=== PATIENT | male | born 1975 | race Hispanic/Latino ===

== ENCOUNTER 2022-01-05 06:20 | Day surgery (SDC) | payer OTHER ==
[~2022-01-05] VITALS: Ht 170.2 cm; Wt 77.1 kg
[~2022-01-05 06:20] MED LIST: 0.9%NACL 1000ML 1,000 ML IV ONE
[2022-01-05 06:40] VITALS: BP 110/77
[2022-01-05] MEDS ORDERED: PROPOFOL 10 MG/ML 20ML VIAL IV ONE (07:05)
[2022-01-05 08:15] VITALS: BP 99/64
[2022-01-05 08:20] VITALS: BP 101/65
[2022-01-05 08:25] VITALS: BP 103/67
[2022-01-05 08:30] VITALS: BP 99/66
[2022-01-05 08:45] VITALS: BP 104/68
== END 2022-01-05 08:45 | disposition home or self-care (01) ==
LOC: DAH 06:20 → ENDO 06:20
PROVIDERS: ATTEND Internal Medicine Gastroenterology
DX: Z12.11 Encounter for screening for malignant neoplasm of colon (principal); Z20.822 Contact with and (suspected) exposure to COVID-19; K62.1 Rectal polyp; Z79.01 Long term (current) use of anticoagulants; Z72.89 Other problems related to lifestyle
CPT/HCPCS: 45380; 87635; A4215 ×2; A4221; A4222; A4223; A4606; A4620; A4657; A4663; C9803; J2704; J7030

== ENCOUNTER → 2024-12-28 | Outpatient (CLI) | payer OTHER ==
[2024-12-28 12:21] LABS: ALBUMIN 3.8 g/dL (3.5-5.0); BILIRUBIN,TOTAL 0.4 mg/dL (0.2-1.0); CREATININE 0.9 mg/dL (0.5-1.3); TOTAL PROTEIN, SERUM 6.9 g/dL (6.0-8.3)
[2024-12-28 12:25] LABS: HEMOGLOBIN A1C 5.8 % (4.0-6.0)
== END | disposition home or self-care (01) ==
LOC: LAB 09:25
PROVIDERS: ATTEND Student in an Organized Health Care Education/Training Program
DX: R55 Syncope and collapse (principal)
CPT/HCPCS: 36415; 80053; 80061; 83036

== ENCOUNTER → 2025-01-03 | Outpatient (CLI) | payer OTHER ==
[~2025-01-03] MED LIST changes: -0.9%NACL 1000ML 1,000 ML IV ONE; +AMOX500C2 PO; +FLUT16H NS; +IOHEXOL 350 MG/ML 100ML INFUS..BTL IV ONE; +LORA10TA7 PO; +metoPROLOL tartRATE 1 MG/ML 5ML VIAL IV ONE
--- NOTE | 2025-01-03 13:12 | HMCIMG ---
CT CARDIAC ANGIO W/CONT. CCTA REASON: SYNCOPE AND COLLASPE COMPARISON: None TECHNIQUE: Images are obtained through the heart in the axial plane before and during bolus IV contrast infusion, 100 cc Omnipaque 350. 2-D and 3-D multiplanar reconstruction images were then performed. The injection had to be repeated once due to motion artifact on the first sequence, total contrast volume was 200 cc. FINDINGS: This dictation is for the noncardiac findings only. Cardiac and coronary artery findings are reported separately. Visualized portions of the lungs are clear. There is normal-appearing pulmonary interstitium. There is no hilar or mediastinal lymphadenopathy. Chest wall structures appear unremarkable. IMPRESSION: 1. Unremarkable noncardiac portions of CT cardiac angiography.
--- NOTE | 2025-01-07 14:09 | CARDIOLOGY ---
RAD REPORT: CORNARY CT ANGIO RADIOLOGY REPORT: CORONARY CT ANGIOGRAPHY DATE: Jan 07, 2025 QUALITY: Excellent CLINICAL HISTORY AND INDICATION: [ syncope] TECHNIQUE: After obtaining a preliminary form tamper image, contrast imaging performed on an [employer] [id number] scanner. A dedicated, limited window, coronary imaging protocol was used, with single breath-hold, retrospective ECG gating, and automated arrhythmia rejection. 100 cc of low osmolar contrast agent: Omnipaque 350 was delivered via a 18-gauge IV catheter in the right antecubital fossa, using a power injector and followed by 60 cc of normal saline bolus as a chaser. Collimated images were reformatted at 0.5 mm intervals, and sent to an offline independent workstation for interpretation, using 3D anatomic reconstructions: Curved multiplanar reconstructions, maximum intensity projections, and multiplanar imaging. 10 mg IV metoprolol was administered prior to scanning. 0.8 mg SL nitroglycerin was given. CORONARY ARTERY DESCRIPTIONS: The coronary arteries arise in normal position. Left main coronary artery: Normal caliber vessel that bifurcates into the LAD and LCx. No stenosis. Left anterior descending coronary artery: Normal caliber vessel and gives rise to diagonal and septal branches. No stenosis. Left circumflex coronary artery: Normal caliber, nondominant and gives rise to two large OM branches. No stenosis. Right coronary artery: Large, dominant vessel giving rise to the PL and PDA branches. No stenosis. CAD-RADs: 0, absence of CAD. Thoracic Aorta: Normal diameter. Sharee Torres MD Cardiovascular Disease [facility] SHAREE TORRES MD Jan 07, 2025 14:08
== END | disposition home or self-care (01) ==
LOC: RAH 10:16
PROVIDERS: ATTEND Student in an Organized Health Care Education/Training Program
DX: R55 Syncope and collapse (principal)
CPT/HCPCS: 75574; J3490; Q9967 ×2

== ENCOUNTER 2025-01-05 08:16 | Emergency (ER) | payer OTHER ==
[~2025-01-05] VITALS: Ht 170.2 cm; Wt 77.1 kg
[2025-01-05 08:21] VITALS: TEMP 98.9
[2025-01-05] MEDS: 0.9%NACL 1000ML 1,000 ML IV ONE (08:46)
[2025-01-05] MEDS: mecliZINE HCL 25 MG TABLET PO ONE (08:46)
[2025-01-05 08:48] LABS: BASOPHILS # (AUTO) 0.04 K/uL (0.00-0.20); BASOPHILS % (AUTO) 0.7 % (0.0-5.0); EOSINOPHILS # (AUTO) 0.28 K/uL (0.00-0.70); EOSINOPHILS % (AUTO) 5.2 % (0.0-8.0); IMMATURE GRANULOCYTE ABSOLUTE 0.02 K/uL (0-1); LYMPHOCYTES # (AUTO) 1.8 K/uL (1.0-4.8); LYMPHOCYTES % (AUTO) 33.6 % (21.0-51.0); MEAN CORPUSCULAR HEMOGLOBIN 30.4 pg (27.0-33.0); MEAN CORPUSCULAR HGB CONC 33.2 g/dL (32.0-36.0); MEAN CORPUSCULAR VOLUME 91.6 fL (79-99); MONOCYTES # (AUTO) 0.6 K/uL (0.1-1.0); MONOCYTES % (AUTO) 10.2 % (3.0-13.0); NEUTROPHILS # (AUTO) 2.7 K/uL (1.8-7.7); NEUTROPHILS % (AUTO) 49.9 % (40.0-77.0); PLATELET COUNT (AUTO) 231 K/uL (130-400); RED BLOOD CELL COUNT(AUTO) 5.46 MIL/uL (4.50-6.20); RED CELL DISTRIBUTION WIDTH 12.9 % (11.0-15.5); WHITE BLOOD COUNT (AUTO) 5.4 K/uL (4.8-10.8)
[2025-01-05 08:56] LABS: INR <= 0.93 (0.85-1.15); PROTHROMBIN TIME 10.2 SEC (9.6-11.6)
[2025-01-05 08:58] LABS: PARTIAL THROMBOPLASTIN TIME 27.5 SEC (26.3-35.5)
--- NOTE | 2025-01-05 09:00 | EKG ---
[facility] Test Date: 2025-01-05 Test Time: 08:29:24 Pat Name: ALONDRA POLK Department: ED Room: Gender: M [employer]: [id number] : 1975 Requested By: MARIANO COLÓN Order Number: [id number] Reading MD: Julio Torres Measurements Intervals [place] Rate: 74 P: 42 [place]: 165 QRS: 20 QRSD: 86 T: 24 QT: 390 QTc: 434 Interpretive Statements Sinus rhythm Anteroseptal infarct, age indeterminate Compared to ECG 09/25/2015 00:38:42 Myocardial infarct finding now present Electronically Signed On 01-08-2025 15:59:45 [employer] by Julio Torres Please click the below link to view image of tracing.
[2025-01-05 09:01] LABS: POTASSIUM 3.9 mmol/L (3.5-5.1)
--- NOTE | 2025-01-05 09:09 | ERN ---
General Chief Complaint: Dizzy/Light Headed Stated Complaint: DIZZINESS Time Seen by MD: 08:20 Source: patient History of Present Illness Initial Comments Patient is a 49-year-old male coming in to be evaluated for vertigo. Patient states that this has been ongoing for a couple of days. He also states that he has felt this vertigo more with movement and bending over. No fever or chills no nausea no vomiting. Allergies: Coded Allergies: No Known Drug Allergies (Unverified Allergy, Unknown, 01/02/22) Home Meds No Active Prescriptions or Reported Meds Past Medical History Past Medical History: No Pertinent History Past Surgical History: None ROS Dictation CONSTITUTIONAL: No chills, no fever, no weakness, no diaphoresis, no malaise. HEAD/FACE: No signs of trauma. EENT: No eye pain, no blurred vision, no tearing, no double vision, no ear pain, no ear discharge, no nose pain, no nasal congestion, no throat pain, no throat swelling, no mouth pain. RESPIRATORY: No cough, no orthopnea, no SOB, no stridor, no wheezing. CARDIOVASCULAR: No chest pain, no edema, no palpitations, no syncope. GASTROINTESTINAL/ABDOMINAL: No abdominal pain, no constipation, no diarrhea, no nausea, no vomiting. GENITOURINARY: No abnormal discharge, no dysuria, no frequent urination, no hematuria. No complaints of pain in the genitals. MUSCULOSKELETAL: No back pain, no gout, no joint pain, no joint swelling, no muscle pain, no muscle stiffness, no neck pain. INTEGUMENTARY: No change in color, no change in hair/nails, no dryness, no lesion, no lumps, no rash. NEUROLOGICAL/PSYCH: No anxiety, not depressed, no emotional problem, no headache, no numbness, no pre-existing deficit, no history of seizures, no tremors, no weakness. HEMATOLOGIC/LYMPHATIC: Not anemic, no history of blood clots, no apparent bleeding, no bruising, glands not swollen. All Systems Negative, Except as Noted. Physical Exam Physical Exam Dictation VITAL SIGNS: Reviewed. GENERAL APPEARANCE: Alert, oriented x3, no acute distress, obese. HEAD AND FACE: Non-traumatic. EYES: PERRL, pink conjunctivas, eyelid no trauma, anterior chamber clear. EARS: Pinnas intact and no signs of trauma or erythema. Ear canals clear and no discharge. TMs erythema. NOSE: No discharge, no bleeding. OROPHARYNX: Mouth normal, teeth no caries, tongue pink. Pharynx clear, no erythema. Tonsils no exudates, no abscesses noted. Mucous membrane moist. NECK: Supple, non-tender, no thyromegaly, no masses, no JVD, no bruits. BREAST: Deferred. CHEST: No tenderness, no crepitus, no paradoxical movement, no retractions. LUNGS: Clear, well-ventilated, symmetric, no rales, no wheezing, no rhonchi, no stridor, good breath sounds bilaterally. HEART: Regular rate, regular rhythm, no murmur, no gallops. VASCULAR: No peripheral edema. ABDOMEN: Soft, positive bowel sounds, nondistended, no guarding, nontender, no rebound, no masses no hepatomegaly, no splenomegaly, no Marie's sign, no hernias. RECTAL: Deferred. GENITAL: Deferred. NEUROLOGICAL: Normal speech, gross motor function intact, gross sensory function intact. MUSCULOSKELETAL: Neck nontender, full range of motion, back nontender, full range of motion. EXTREMITIES: Nontender, full range of motion. SKIN: Color pink, dry, no turgor, no rash, no lacerations, no abrasions, no contusions. LYMPHATICS: Deferred. Results Laboratory and Microbiology Lab and Micro Result Laboratory Tests Test 01/05/25 08:30 01/05/25 09:29 01/05/25 09:55 White Blood Count 5.4 K/uL (4.8-10.8) Red Blood Count 5.46 MIL/uL (4.50-6.20) Hemoglobin 16.6 g/dL (14.0-18.0) Hematocrit 50.0 % (42-54) Mean Corpuscular Volume 91.6 fL (79-99) Mean Corpuscular Hemoglobin 30.4 pg (27.0-33.0) Mean Corpuscular Hemoglobin Concent 33.2 g/dL (32.0-36.0) Red Cell Distribution Width 12.9 % (11.0-15.5) Platelet Count 231 K/uL (130-400) Mean Platelet Volume 10.5 fL (7.5-10.5) Immature Granulocyte % (Auto) 0.4 % (0-1) Neutrophils (%) (Auto) 49.9 % (40.0-77.0) Lymphocytes (%) (Auto) 33.6 % (21.0-51.0) Monocytes (%) (Auto) 10.2 % (3.0-13.0) Eosinophils (%) (Auto) 5.2 % (0.0-8.0) Basophils (%) (Auto) 0.7 % (0.0-5.0) Neutrophils # (Auto) 2.7 K/uL (1.8-7.7) Lymphocytes # (Auto) 1.8 K/uL (1.0-4.8) Monocytes # (Auto) 0.6 K/uL (0.1-1.0) Eosinophils # (Auto) 0.28 K/uL (0.00-0.70) Basophils # (Auto) 0.04 K/uL (0.00-0.20) Absolute Immature Granulocyte (auto 0.02 K/uL (0-1) Nucleated Red Blood Cells 0.0 % (0.0-0.19) Prothrombin Time 10.2 SEC (9.6-11.6) Prothromb Time International Ratio <= 0.93 (0.85-1.15) Activated Partial Thromboplast Time 27.5 SEC (26.3-35.5) Sodium Level 136 mmol/L (136-145) Potassium Level 3.9 mmol/L (3.5-5.1) Chloride Level 100 mmol/L (101-111) L Carbon Dioxide Level 28 mmol/L (21-32) Blood Urea Nitrogen 13 mg/dL (7-18) Creatinine 1.0 mg/dL (0.5-1.3) Glomerular Filtration Rate Calc 92 mL/min (>90) Random Glucose 110 mg/dL (70-105) H Total Calcium 8.9 mg/dL (8.5-10.1) Magnesium Level 2.00 mg/dL (1.80-2.40) Total Creatine Kinase 180 U/L (21-232) # Troponin I High Sensitivity 5 ng/L (4-75) B-Type Natriuretic Peptide < 5 pg/mL (0-100) Influenza Type A Antigen Negative For Type A Influenza Type B Antigen Negative For Type B SARS-CoV-2, RNA, NAAT NEGATIVE SARS CoV-2 Urine Color COLORLESS (YELLOW) Urine Appearance CLEAR (CLEAR) Urine pH 6.5 (5.0-8.0) Urine Specific [place] 1.003 (1.001-1.031) Urine Protein NEGATIVE mg/dL (NEGATIVE) Urine Glucose (UA) NEGATIVE mg/dL (NEGATIVE) Urine Ketones NEGATIVE mg/dL (NEGATIVE) Urine Occult Blood NEGATIVE (NEGATIVE) Urine Nitrate NEGATIVE (NEGATIVE) Urine Bilirubin NEGATIVE mg/dL (NEGATIVE) Urine Urobilinogen 0.2 mg/dL (0.2-1.0) Urine Leukocyte Esterase NEGATIVE Tracy/uL Labs Reviewed?: Yes EKG/XRAY/US/CT/MRI EKG Comment 01/05/2025 time 8:29 a.m. Ventricular rate 74 Sinus rhythm [place] [address] wave elevation or depression MDM MDM: Differential diagnosis: Otitis media, stockings tube dysfunction, dehydration, cardiac issues, Patient is a 49-year-old gentleman coming in to be evaluated for vertigo. On physical exam bilateral tympanic membrane erythema. Patient also stated that he felt chest pressure cardiac workup negative for acute findings. Orthostatic vitals collected were off so IV fluids were given. PMD discharged in stable condition. ED Course Orders Procedure Category Date Status Time Cbc With Differential LAB 01/05/25 Complete 08:20 Prothrombin Time With LAB 01/05/25 Complete INR 08:20 B-Type Natriuretic LAB 01/05/25 Complete Peptide 08:20 Chest 1vw RAD 01/05/25 Resulted 08:20 12 Lead Ekg Tracing- EKG 01/05/25 Complete Technical 08:20 0.9%Nacl 1000ml (Ns PHA 01/05/25 Complete 1000ml) 08:30 Magnesium LAB 01/05/25 Complete 08:20 Creatine Kinase, Total LAB 01/05/25 Complete 08:20 Troponin I High LAB 01/05/25 Complete Sensitivity 08:20 Urinalysis Profile LAB 01/05/25 Complete 08:20 Partial LAB 01/05/25 Complete Thromboplastin Time 08:20 Basic Metabolic Panel LAB 01/05/25 Complete 08:20 Meclizine Hcl 25 Mg PHA 01/05/25 Complete (Antivert 25 Mg) 08:30 Covid Rna Naat LAB 01/05/25 Complete 09:13 Influenza Type A & B, LAB 01/05/25 Complete Rapid 09:13 Pantoprazole 40mg Inj PHA 01/05/25 Complete (Protonix 40mg Inj 10:00 Current Medications Medications (Trade) Dose Ordered Sig/Khadijah Route PRN Reason Start Time Stop Time Status Last Admin Dose Admin Meclizine HCl (ANTIvert 25 mg) 25 mg ONCE ONCE PO 01/05/25 08:30 01/05/25 08:31 DC 01/05/25 08:46 Pantoprazole Sodium (PROTonix 40MG INJ) 40 mg ONCE ONCE IVP 01/05/25 10:00 01/05/25 10:02 DC 01/05/25 10:16 Sodium Chloride 1,000 ml @ 0 mls/hr ONCE ONCE IV 01/05/25 08:30 01/05/25 08:31 DC 01/05/25 08:46 Vital Signs Date Time Temp Pulse Resp B/P (MAP) Pulse Ox O2 Delivery O2 Flow Rate FiO2 01/05/25 09:00 75 13 129/83 97 Room Air* 0 01/05/25 08:30 75 16 150/87 98 Room Air* 0 01/05/25 08:21 99.0 79 16 134/91 97 Room Air 0 DX & DISP Disposition: Discharge Departure Impression: Primary Impression: Otitis media Additional Impression: Dehydration Condition: Stable Scripts Amoxicillin (Amoxicillin) 500 Mg Capsule 1 CAP PO TID for 10 Days, #30 CAP 0 Refills Prov: MARIANO COLÓN MD 01/05/25 Loratadine (Loratadine) 10 Mg Tablet 1 TAB PO DAILY for allergy symptoms for 30 Days, #30 TAB 0 Refills Prov: MARIANO COLÓN MD 01/05/25 Fluticasone Propionate (Flonase Nasal [place]) 50 Mcg/Actuation [place] 2 SPRAY NS DAILY, #16 GM 0 Refills Prov: MARIANO COLÓN MD 01/05/25 Additional Instructions: FOLLOW-UP WITH PRIMARY CARE PROVIDER IN 1 TO 2 DAYS. TAKE MEDICATIONS DIRECTED HERE IN THE EMERGENCY ROOM. OKAY TO CONTINUE HOME MEDICATIONS UNLESS OTHERWISE DISCUSSED DURING YOUR VISIT IN THE EMERGENCY ROOM TODAY. RETURN TO YOUR NEAREST EMERGENCY ROOM IF SYMPTOMS WORSEN OR IF THERE IS NO IMPROVEMENT. CALL 911 IF YOU NEED IMMEDIATE ASSISTANCE. TAKE TYLENOL [id number] NEEDED AND IF NO CONTRAINDICATIONS ARE PRESENT. INCREASE ORAL HYDRATION. A WOUND CULTURE OR URINE CULTURE WAS ORDERED HERE IN THE EMERGENCY ROOM DEPARTMENT PLEASE FOLLOW-UP WITH PRIMARY CARE PROVIDER AND ADVISE THEM TO GET REPEAT PORTS FROM OUR FACILITY. IF YOU HAD ANY ALLAN WRAP/SPLINTS THAT WERE APPLIED HERE, PLEASE DO NOT REMOVE THEM UNTIL YOU SEE YOUR PRIMARY CARE OR SPECIALTY. Referrals: Referrals: DAT BOSS (PCP) Time of Disposition: 10:45 MARIANO COLÓN MD Jan 05, 2025 09:09
[2025-01-05 09:14] LABS: B-TYPE NATRIURETIC PEPTIDE < 5 pg/mL (0-100)
--- NOTE | 2025-01-05 09:21 | HMCIMG ---
CHEST 1VW REASON: vertigo COMPARISON: 09/24/2020 FINDINGS: Single view of the chest was obtained. Lungs are clear. Heart size is normal. There is no pulmonary vascular congestion. Mediastinum and bony thorax appear unremarkable. IMPRESSION: 1. Normal single view chest x-ray.
[2025-01-05 10:00] VITALS: BP 132/80; PULSE 80; RESP 16; O2SAT 97
[2025-01-05] MEDS: PANTOPrazole 40 MG/VIAL IVP ONE (10:16)
[2025-01-05 10:27] LABS: APPEARANCE,URINE CLEAR (CLEAR); BILIRUBIN,URINE NEGATIVE (NEGATIVE); COLOR,URINE COLORLESS (YELLOW); GLUCOSE, URINE (UA) NEGATIVE (NEGATIVE); KETONES,URINE NEGATIVE (NEGATIVE); LEUKOCYTE ESTERASE ,URINE NEGATIVE Leu/uL (NEGATIVE); NITRATE,URINE NEGATIVE (NEGATIVE); OCCULT BLOOD,URINE NEGATIVE (NEGATIVE); PH,URINE 6.5 (5.0-8.0); PROTEIN,URINE NEGATIVE (NEGATIVE); UROBILINOGEN,URINE 0.2 mg/dL (0.2-1.0)
[2025-01-05 10:31] LABS: ADD UA MICROSCOPIC NO
[2025-01-05 10:31] LABS: SARS-CoV-2, RNA, NAAT NEGATIVE SARS CoV-2 (NEGATIVE)
[2025-01-05 10:32] LABS: INFLUENZA TYPE A Negative For Type A (NEGATIVE); INFLUENZA TYPE B Negative For Type B (NEGATIVE)
[2025-01-05] MEDS ORDERED: LORA10TA7 PO (10:46)
[2025-01-05] MEDS ORDERED: FLUT16H NS (10:46)
[2025-01-05] MEDS ORDERED: AMOX500C2 PO (10:47)
[2025-01-05] MEDS: dexaMETHasone SOD PHOSPHATE 4 MG/ML 1ML VIAL IV ONE (10:55)
[2025-01-05] MEDS: cefTRIAXone 1G VIAL IVPB ONE (10:55)
--- NOTE | 2025-01-05 11:19 | NUR ---
ORTHOSTATIC VITALS LAYING 79HR 18RR 96%RA 150/87 SITTING 74HR 18RR 97% RA 121/89 STANDING 87HR 18RR 97% 125/83
== END 2025-01-05 11:08 | disposition home or self-care (01) ==
LOC: EDH 08:16
DX: H66.90 Otitis media, unspecified, unspecified ear (principal); E86.0 Dehydration; Z20.822 Contact with and (suspected) exposure to COVID-19; Z79.01 Long term (current) use of anticoagulants
CPT/HCPCS: 99285; 96374; 96375; 71045; 87635; 96361; 82550; 83735; 84484; 80048; 83880; 85025; 85610; 85730; 87804 ×2; 81003; 36415; 93005; J1100; J7030; J0696; J2470

== ENCOUNTER → 2025-01-10 | Outpatient (CLI) | payer OTHER ==
[~2025-01-10] MED LIST changes: -IOHEXOL 350 MG/ML 100ML INFUS..BTL IV ONE; -metoPROLOL tartRATE 1 MG/ML 5ML VIAL IV ONE
--- NOTE | 2025-01-16 11:44 | HMCSR ---
APPROVED REPORT EXAM: Two-dimensional and M-mode echocardiogram with Doppler and color Doppler. INDICATION ICD: R55 Syncope and collapse 2D Dimensions RVDd4.6 cmLVEF(%)60.9 (>50%)LVED Vol(simp.)106.0 mL IVSd1.1 (0.7-1.1cm)FS(%)33 %LVES Vol(simp.)49.0 mL LVDd4.6 (3.8-5.6cm)Ao Root(2D)3.5 (2.0-3.7cm)LVEF(%, simp.)54 % PWd1.1 (0.7-1.1cm)LVOT diam2.2 (1.8-2.4cm)LA ESV INDEX (BP)22.37 mL/m2 LVDs3.1 (2.5-4.0cm)IVC diam1.5 cm Aortic Valve AoV Vmax1.4 m/Jensen Peak GR7.5 mmHgLVOT Vmax1.1 m/s AoV VTI0.2 mAo Mean GR4.6 mmHgLVOT VTI0.22 m JOSEFA (VMAX)3.3 cm2AVA (VTI) 3.3 cm2 Mitral Valve MV E Vmax64.3 cm/sDECEL Fqss616 ms MV A Vmax58.2 cm/sP 1/2 T43 ms E/A ratio1.1MVA (PHT)5.1 cm2 MR Max PG67 mmHg TDI E/E' Medial8.0E/E' Lateral4.9 Pulmonary Valve PV Vmax1.3 m/sPV VTI0.22 mPV Mean GR3 mmHg PV Peak GR6.4 mmHg Tricuspid Valve TR Vmax2.2 m/sRAP (EST) 3 zoNbOWUO66.7 mmHg TR Peak GR19.7 mmHg Left Ventricle The left ventricle structure and function is normal. There is normal LV segmental wall motion. There is mild concentric left ventricular hypertrophy. LVEF is 55-60%. Left ventricular filling pattern is normal for age. Right Ventricle The right ventricle is mildly dilated. The right ventricular systolic function is normal. Atria The left atrium size is normal. The right atrium size is normal. Aortic Valve Aortic valve is trileaflet. Aortic valve leaflets are sclerotic but open well. Trace aortic regurgita tion. There is no aortic valvular stenosis. Mitral Valve Mitral valve leaflets appear normal. Mitral regurgitation is trace. There is no mitral valve stenosis . Tricuspid Valve The tricuspid valve leaflets appear normal. There is trace tricuspid regurgitation. Pulmonic Valve Pulmonic valve is not well visualized. There is trace pulmonic valvular regurgitation. Great Vessels The aortic root is normal in size. The IVC is normal in size and collapses >50% with inspiration. Pericardium No pericardial effusion. Other Information Quality : Good Conclusion The left ventricle structure and function is normal. LVEF is 55-60% with normal LV segmental wall mot ion. There is mild concentric left ventricular hypertrophy. Left ventricular filling pattern is normal for age. The right ventricular systolic function is normal. No hemodynamically significant valvular abnormalities. No pericardial effusion.
== END | disposition home or self-care (01) ==
LOC: SHCH 15:51
PROVIDERS: ATTEND Student in an Organized Health Care Education/Training Program
DX: R55 Syncope and collapse (principal)
CPT/HCPCS: 93306